=== PATIENT | female | born 1935 | race Caucasian/White ===

== ENCOUNTER 2017-12-23 07:52 | Observation (INO) | payer MEDICARE, OTHER ==
[~2017-12-23] VITALS: Ht 157.5 cm; Wt 86.0 kg
[~2017-12-23 07:52] MED LIST: CALCIUM500 MG OR; FOLIC ACID1 MG PO; LEVOTHYROXIN50 MCG OR; LORTAB 5 OR; MICARDIS40 MG PO; NEXIUM40 M1 OR; RHEUMATREX2.5 M1 PO; SINGULAIR10 MG OR; VERAMYST27.5 MCG; VITAMIN B-12100 MCG PO; VITAMIN D400 UNI1 PO; ZOCOR20 M1 PO; ZOCOR40 MG OR; ZPAK PO
--- NOTE | 2017-12-23 07:52 | NUR ---
PT TO ROOM 12 VIA WC ABLE TO STAND AND TRANSFER SELF WITHOUT ASSIST.
[2017-12-23 08:21] LABS: HEMATOCRIT 38.2 % (37.0-47.0); HEMOGLOBIN 12.4 g/dl (12.0-16.0); IMMATURE GRANULOCYTES 0.4 % (0.0-5.0); MEAN CELL VOLUME 99.5 fL CALC (80.0-100.0); MEAN CORPUSCULAR HGB 32.3 pG CALC (26.0-32.0); MEAN CORPUSCULAR HGB CONC 32.5 g/L CALC (32.0-36.0); NEUT# 8.84 thou/uL (2.00-7.15); RED BLOOD COUNT 3.84 mill/uL (4.20-5.60); RED CELL DISTRI WIDTH 14.2 % (11.5-15.5)
[2017-12-23 08:34] LABS: ANION GAP 12 (6-22 (CALC)); BUN 14 mg/dL (8-23); BUN/CREATININE RATIO 20 (12-20 (CALC)); CARBON DIOXIDE 29 mmol/l (22-30); CHLORIDE 105 mmol/l (95-108); CREATININE 0.7 mg/dL (0.5-1.0); GFR > 60 ML/MIN (>=60 (CALC)); GFR FOR AFR.AMER. > 60 ML/MIN (>=60 (CALC)); POTASSIUM 4.2 mmol/l (3.5-5.1); SODIUM 142 mmol/l (137-146)
--- NOTE | 2017-12-23 08:53 | NUR ---
PT UPDATED ON KNOWN RESULTS, RESTS IN THE STRETCHER WITH DAUGHTER AT BEDSIDE.
[2017-12-23] MEDS ORDERED: METOPROL TAR25 MG PO (09:26)
[2017-12-23] MEDS ORDERED: LOSARTAN POTASS50 MG PO (09:27)
[2017-12-23] MEDS ORDERED: ELIQUIS5 MG PO (09:27)
[2017-12-23] MEDS ORDERED: OMEPRAZOLE10 MG PO (09:28)
[2017-12-23] MEDS ORDERED: LEVOTHYROXIN75 MCG PO (09:28)
[2017-12-23] MEDS ORDERED: D3 20002000 UNIT PO (09:30)
--- NOTE | 2017-12-23 09:34 | NUR ---
PT AWARE OF PENDING ADMISSION, NO CHEST PAIN OR SOB.
[2017-12-23 10:30] VITALS: BP 153/71
--- NOTE | 2017-12-23 10:35 | NUR ---
PT TAKEN TO ROOM 278 WITHOUT INCIDENT, REPORT WAS TO SAMIRA.
--- NOTE | 2017-12-23 10:55 | NUR ---
PT ARRIVED TO FLOOR @1030 VIA STRETCHER ACCOMPANIED BY CLARENCE TURPIN. PT AMBULATES INDEPENDENTLY. STEADY GAIT. DENIES PAIN. REPORTING OF CONCERNS AND CHANGES IN CONDITION ENCOURAGED. PLAN OF CARE DISCUSSED. PT ORIENTED TO ROOM AND EQUIPMENT. CALL LIGHT REVIEWED AND IN REACH. LUNGS CLEAR, NO SOB NOTED. TELE MONITOR IN PLACE. #20 LFA, FREE FROM REDNESS/ SWELLING. IVF INITIATED PER MS ORDERS. WILL CONTINUE TO MONITOR.
--- NOTE | 2017-12-23 11:21 | NUR ---
CALLED DR. ZUÑIGA'S OFFICE, SPOKE TO MARCEL AND ALL INFORMATION REGARDING PATIENT'S CONSULTATION WAS GIVEN.
--- NOTE | 2017-12-23 14:00 | NUR ---
PT SITTING IN CHAIR AT BEDSIDE. DENIES PAIN AT THIS TIME. NO COMPLAINTS AT THIS TIME. CALL LIGHT WITHIN REACH.
[2017-12-23 15:31] VITALS: BP 167/75
--- NOTE | 2017-12-23 16:01 | NUR ---
BP 167/75, DR. SIMS NOTIFIED. ORDER FOR CLONIDINE PRN GIVEN. MED ADMINISTERED.
[2017-12-23 19:22] VITALS: BP 139/64
--- NOTE | 2017-12-23 19:30 | NUR ---
PATIENT RESTING IN BED AT THIS TIME-AWAKE ALERT AND ORIENTEDX3. PATIENT WITH NO COMPLAINTS AT THIS TIME. TELE MONITORING DEVICE IN PLACE. SALINE LOCK TO LEFT FOREARM INTACT-IS HEALTHY AT THIS TIME. STATES LAST BM YESTERDAY. DENIES ANY DIFFICULTY WITH URINATION. LUNGS ARE CLEAR. ABD IS SOFT AND NON-TENDER. BS+. NO PEDAL EDEMA NOTED AND PULSES ARE PALPABLE. SAFETY PRECAUTIONS REINFORCED. CALL LIGHT IN REACH. WILL CONT TO MONITOR.
--- NOTE | 2017-12-23 23:42 | NUR ---
APPEARS SLEEPING AT THIS TIME POSITIONED ON LEFT SIDE. RESP ARE EVEN AND UNLABORED. 2200 TROP NEG. CALL LIGHT IN REACH. WILL CONT TO MONITOR.
[2017-12-23 23:54] VITALS: BP 137/66
[2017-12-24 04:15] LABS: HEMATOCRIT 35.1 % (37.0-47.0); HEMOGLOBIN 11.4 g/dl (12.0-16.0); IMMATURE GRANULOCYTES 0.3 % (0.0-5.0); MEAN CELL VOLUME 98.3 fL CALC (80.0-100.0); MEAN CORPUSCULAR HGB 31.9 pG CALC (26.0-32.0); MEAN CORPUSCULAR HGB CONC 32.5 g/L CALC (32.0-36.0); NEUT# 8.22 thou/uL (2.00-7.15); RED BLOOD COUNT 3.57 mill/uL (4.20-5.60); RED CELL DISTRI WIDTH 14.1 % (11.5-15.5)
--- NOTE | 2017-12-24 04:22 | NUR ---
PATIENT RESTING IN BED APPEARS SLEEPING AT THIS TIME. TROP WAS DRAWN ORDERED. CALL LIGHT IN REACH. WILL CONT TO MONITOR,
[2017-12-24 04:27] LABS: ALBUMIN 3.1 g/dL (3.2-5.0); ALKALINE PHOSPHATASE 64 u/l (38-126); ANION GAP 10 (6-22 (CALC)); BILIRUBIN, TOTAL 0.7 mg/dL (0.0-1.4); BUN 12 mg/dL (8-23); BUN/CREATININE RATIO 20 (12-20 (CALC)); CARBON DIOXIDE 28 mmol/l (22-30); CHLORIDE 105 mmol/l (95-108); CREATININE 0.6 mg/dL (0.5-1.0); GFR > 60 ML/MIN (>=60 (CALC)); GFR FOR AFR.AMER. > 60 ML/MIN (>=60 (CALC)); MAGNESIUM 1.8 mg/dL (1.6-2.3); POTASSIUM 4.4 mmol/l (3.5-5.1); SGOT/AST 18 u/l (9-36); SGPT/ALT 27 u/l (11-66); SODIUM 139 mmol/l (137-146); TOTAL PROTEIN 5.6 g/dL (6.3-8.2)
[2017-12-24 04:46] VITALS: BP 135/64
[2017-12-24 07:55] VITALS: BP 140/47
--- NOTE | 2017-12-24 07:55 | NUR ---
ASSESSMENT IS COMPLETED: PT IS RELAXING IN BED WITH NO DISTRESS NOTED. IV SITE IS FREE FROM REDNESS OR EDEMA. HR IS REG, PULSES ARE STRONG X4, ABD IS SOFT WITH ACTIVE BS, BREATH SOUNDS ARE CLEAR. TELE MONTIOR IN PLACE.
[2017-12-24 11:00] VITALS: BP 158/70
--- NOTE | 2017-12-24 12:00 | NUR ---
PT IS RELAXING IN BED AND WAITING ON DISCHARGE. FAMILY IN THE ROOM.IV SITE IS FREE FROM REDNESS OR EDEMA.
--- NOTE | 2017-12-24 13:15 | NUR ---
PT RECEIVED DISCHARGE INSTRUCTIONS IV SITE DISCONTINUED CATHETER INTAT.
--- NOTE | 2017-12-24 13:20 | NUR ---
Discharge instructions given. Patient verbalizes understanding of same. Discharged in stable condition via Wheelchair to Home with family. All belongings sent with pt.
== END 2017-12-24 13:12 | disposition home or self-care (01) ==
LOC: ED 07:52 → ED-I 08:28 → ED 09:35 → MS2 09:36
PROVIDERS: Family Medicine; ADMIT Internal Medicine Nephrology; ATTEND Internal Medicine Nephrology
DX: R07.89 Other chest pain (principal); I10 Essential (primary) hypertension; M06.9 Rheumatoid arthritis, unspecified; I48.0 Paroxysmal atrial fibrillation; E03.9 Hypothyroidism, unspecified; E78.5 Hyperlipidemia, unspecified; K21.9 Gastro-esophageal reflux disease without esophagitis; E55.9 Vitamin D deficiency, unspecified; G25.81 Restless legs syndrome; Z86.718 Personal history of other venous thrombosis and embolism; Z79.01 Long term (current) use of anticoagulants

== ENCOUNTER 2018-03-07 16:27 | Emergency (ER) | payer MEDICARE, OTHER ==
[~2018-03-07] VITALS: Ht 157.5 cm; Wt 86.4 kg
[~2018-03-07 16:27] MED LIST changes: +D3 20002000 UNIT PO; +ELIQUIS5 MG PO; +LEVOTHYROXIN75 MCG PO; +LOSARTAN POTASS50 MG PO; +METOPROL TAR25 MG PO; +OMEPRAZOLE10 MG PO
[2018-03-07 17:22] LABS: HEMATOCRIT 41.8 % (37.0-47.0); HEMOGLOBIN 12.7 g/dl (12.0-16.0); IMMATURE GRANULOCYTES 0.3 % (0.0-5.0); MEAN CELL VOLUME 104.2 fL CALC (80.0-100.0); MEAN CORPUSCULAR HGB 31.7 pG CALC (26.0-32.0); MEAN CORPUSCULAR HGB CONC 30.4 g/L CALC (32.0-36.0); NEUT# 4.48 thou/uL (2.00-7.15); RED BLOOD COUNT 4.01 mill/uL (4.20-5.60); RED CELL DISTRI WIDTH 14.6 % (11.5-15.5)
[2018-03-07 17:31] LABS: ANION GAP 12 (6-22 (CALC)); BUN 12 mg/dL (8-23); BUN/CREATININE RATIO 19 (12-20 (CALC)); CARBON DIOXIDE 25 mmol/l (22-30); CHLORIDE 110 mmol/l (95-108); CREATININE 0.7 mg/dL (0.5-1.0); GFR > 60 ML/MIN (>=60 (CALC)); GFR FOR AFR.AMER. > 60 ML/MIN (>=60 (CALC)); POTASSIUM 4.8 mmol/l (3.5-5.1); SODIUM 141 mmol/l (137-146)
[2018-03-07 18:38] VITALS: BP 163/60
[2018-03-08] MEDS ORDERED: KEPPRA500 M2 PO (13:17)
== END 2018-03-07 19:08 | disposition home or self-care (01) ==
LOC: ED 16:27
PROVIDERS: Family Medicine
DX: R56.9 Unspecified convulsions (principal); I10 Essential (primary) hypertension; I48.0 Paroxysmal atrial fibrillation; E78.5 Hyperlipidemia, unspecified; K21.9 Gastro-esophageal reflux disease without esophagitis; M19.90 Unspecified osteoarthritis, unspecified site; Z86.73 Personal history of transient ischemic attack (TIA), and cerebral infarction without residual deficits

== ENCOUNTER 2018-03-08 10:25 | Emergency (ER) | payer MEDICARE, OTHER ==
[~2018-03-08] VITALS: Ht 157.5 cm; Wt 86.0 kg
[2018-03-08 12:46] LABS: HEMATOCRIT 38.8 % (37.0-47.0); HEMOGLOBIN 12.5 g/dl (12.0-16.0); IMMATURE GRANULOCYTES 0.3 % (0.0-5.0); MEAN CORPUSCULAR HGB 31.6 pG CALC (26.0-32.0); MEAN CORPUSCULAR HGB CONC 32.2 g/L CALC (32.0-36.0); NEUT# 4.18 thou/uL (2.00-7.15); RED BLOOD COUNT 3.96 mill/uL (4.20-5.60); RED CELL DISTRI WIDTH 14.6 % (11.5-15.5)
[2018-03-08 13:08] LABS: ALBUMIN 3.4 g/dL (3.2-5.0); ALKALINE PHOSPHATASE 58 u/l (38-126); ANION GAP 11 (6-22 (CALC)); BILIRUBIN, TOTAL 0.4 mg/dL (0.0-1.4); BUN 12 mg/dL (8-23); BUN/CREATININE RATIO 19 (12-20 (CALC)); CARBON DIOXIDE 27 mmol/l (22-30); CHLORIDE 107 mmol/l (95-108); CREATININE 0.6 mg/dL (0.5-1.0); GFR > 60 ML/MIN (>=60 (CALC)); GFR FOR AFR.AMER. > 60 ML/MIN (>=60 (CALC)); POTASSIUM 4.2 mmol/l (3.5-5.1); SGOT/AST 39 u/l (9-36); SODIUM 141 mmol/l (137-146)
[2018-03-08] MEDS ORDERED: KEPPRA500 M2 PO (13:17)
[2018-03-08 13:31] VITALS: BP 141/65
== END 2018-03-08 13:40 | disposition home or self-care (01) ==
LOC: ED 10:25
PROVIDERS: Emergency Medicine
DX: G40.909 Epilepsy, unspecified, not intractable, without status epilepticus (principal); R42 Dizziness and giddiness; R94.31 Abnormal electrocardiogram [ECG] [EKG]; I10 Essential (primary) hypertension

== ENCOUNTER → 2018-06-20 | Outpatient (REF) | payer MEDICARE, OTHER ==
[~2018-06-20] MED LIST changes: +KEPPRA500 M2 PO
[2018-06-20 10:46] LABS: HEMOGLOBIN 12.2 g/dl (12.0-16.0); IMMATURE GRANULOCYTES 0.4 % (0.0-5.0); MEAN CELL VOLUME 97.4 fL CALC (80.0-100.0); MEAN CORPUSCULAR HGB 31.3 pG CALC (26.0-32.0); MEAN CORPUSCULAR HGB CONC 32.1 g/L CALC (32.0-36.0); NEUT# 4.48 thou/uL (2.00-7.15); RED BLOOD COUNT 3.9 mill/uL (4.20-5.60); RED CELL DISTRI WIDTH 14.9 % (11.5-15.5)
[2018-06-20 10:56] LABS: ALBUMIN 3.9 g/dL (3.2-5.0); BILIRUBIN, TOTAL 0.4 mg/dL (0.0-1.4); C-REACTIVE PROTEIN 1.7 mg/dL (0-0.9); CREATININE 0.7 mg/dL (0.5-1.0); TOTAL PROTEIN 6.5 g/dL (6.3-8.2)
== END | disposition home or self-care (01) ==
LOC: LAB 09:55
PROVIDERS: ATTEND Internal Medicine Rheumatology
DX: M06.09 Rheumatoid arthritis without rheumatoid factor, multiple sites (principal); Z79.899 Other long term (current) drug therapy

== ENCOUNTER 2018-10-13 17:38 | Observation (INO) | payer MEDICARE, OTHER ==
[~2018-10-13] VITALS: Ht 152.4 cm; Wt 86.2 kg
--- NOTE | 2018-10-13 17:45 | NUR ---
EMS TO ER ROOM 10, TO BED
--- NOTE | 2018-10-13 17:50 | NUR ---
PT ARRIVES VIA EMS S/P SEIZURE AT HOME. PT WEEPY BUT ALERT AND ORIENTED X4.
[2018-10-13] MEDS ORDERED: ELIQUIS2.5 MG PO (17:56)
[2018-10-13] MEDS ORDERED: KEPPRA XR750 MG PO (17:58)
[2018-10-13 18:00] LABS: HEMATOCRIT 40.2 % (37.0-47.0); HEMOGLOBIN 13.1 g/dl (12.0-16.0); IMMATURE GRANULOCYTES 0.4 % (0.0-5.0); MEAN CELL VOLUME 95.7 fL CALC (80.0-100.0); MEAN CORPUSCULAR HGB 31.2 pG CALC (26.0-32.0); MEAN CORPUSCULAR HGB CONC 32.6 g/L CALC (32.0-36.0); NEUT# 7.31 thou/uL (2.00-7.15); RED BLOOD COUNT 4.2 mill/uL (4.20-5.60); RED CELL DISTRI WIDTH 14.4 % (11.5-15.5)
[2018-10-13 18:17] LABS: ALBUMIN 3.8 g/dL (3.2-5.0); ALKALINE PHOSPHATASE 75 u/l (38-126); BILIRUBIN, TOTAL 0.5 mg/dL (0.0-1.4); BUN 14 mg/dL (8-23); BUN/CREATININE RATIO 19 (12-20 (CALC)); CARBON DIOXIDE 26 mmol/l (22-30); CHLORIDE 106 mmol/l (95-108); CREATININE 0.7 mg/dL (0.5-1.0); GFR > 60 ML/MIN (>=60 (CALC)); GFR FOR AFR.AMER. > 60 ML/MIN (>=60 (CALC)); SODIUM 141 mmol/l (137-146); TOTAL PROTEIN 6.4 g/dL (6.3-8.2)
[2018-10-13 18:18] LABS: ANION GAP 13 (6-22 (CALC)); POTASSIUM 3.6 mmol/l (3.5-5.1); SGOT/AST 43 u/l (9-36)
--- NOTE | 2018-10-13 18:45 | NUR ---
PT RESTING IN NO DISTRESS, WEEPY WITH FAMILY. DENIES COMPLAINTS. VSS. ASSISTED UP IN BED,FAMILY UPDATED ON WAIT TIME.
--- NOTE | 2018-10-13 18:50 | NUR ---
IN ROOM INTRODUCED SELF TO PT. NO C/O PAIN OR DISCIMFORT OFFERD, V/V STABLE, NO SEIZURE ACTIVITY NOTED. PT. FAMILY AT SIDE.
--- NOTE | 2018-10-13 19:30 | NUR ---
Admission Note Report Given to: SABI LIMA Transported by: Wheelchair X Stretcher Transported with: X Nurse Transporter X Patent IV O2 X Money Order Clerk
--- NOTE | 2018-10-13 20:00 | NUR ---
PT. TO [facility] FLOOR VIA STRETCHER, NO C/O AT THIS TIME.
[2018-10-13 20:15] VITALS: BP 160/62
--- NOTE | 2018-10-13 20:15 | NUR ---
PT ARRIVED TO THE FLOOR VIA STRETCHER ACCOMPANIED BY ED NURSE. PT AMBULATED TO BED FROM STRETCHER W/ASSISTANCE X2. PT WAS STABLE ON HER FEET, NO S/O DISTRESS/P/N/V AT THIS TIME. DAUGHTER AND ACCOMPANIED PT TO ROOM. AIDE IS IN W/PT ORIENTING TO LIGHTS CALL SYSTEM, BED,TV.
[2018-10-13 20:45] LABS: URINE BILIRUBIN - DIPSTICK NEGATIVE (NEGATIVE); URINE BLOOD DIPSTICK NEGATIVE (NEGATIVE); URINE COLOR YELLOW; URINE GLUCOSE - DIPSTICK NEGATIVE (NEGATIVE); URINE KETONE NEGATIVE (NEGATIVE); URINE LEUK ESTERASE MODERATE (NEGATIVE); URINE NITRITE - DIPSTICK NEGATIVE (Negative); URINE PH 6.5 (4.5-8.0); URINE PROTEIN - DIPSTICK NEGATIVE (NEG-TRACE); URINE UROBILINOGEN - DIPSTICK 0.2 E.U./dL (0.2)
--- NOTE | 2018-10-13 20:45 | NUR ---
PT ASSESSED AND ADMISSION COMPLETED AT THIS TIME. DAUGHTER WAS HERE TO ASSIST W/QUESTIONS. PT ABLE TO ANSWER MOST QUESTIONS AND DAUGHTER WOULD ASSIST AT TIMES. PT ASSISTED TO AND FROM RESTROOM, BACK TO BED/STEADY ON FEET. PT HAS BEEN INSTRUCTED TO CALL FOR ASSISTANCE WHEN AMBULATING/VOICED UNDERSTANDING. PT MOVES QUICKLY AND WAS REMINDED TO SLOW DOWN SINCE SHE IS NOT FEELING WELL RIGHT NOW. NO C/O PAIN/N/V/[place] AT THIS TIME. LUNG SOUNDS ARE CLEAR, ABD SOFT NON-TENDER W/ACTIVE BOWEL SOUNDS/LAST STOOL REPORTED TO BE YESTERDAY AND NORMAL FOR PT. 200CC OF CLEAR YELLOW URINE OUTPUT EMPTIED AT THIS TIME/PT DENIES ANY BURNING OR DIFFICULTY URINATING. SKIN AND NEURO'S ARE INTACT, TRACE EDEMA NOTED TO LEFT KNEE/PT REPORTS HAVING RA AND RECEIVING PERIODIC SHOTS TO L.KNEE AND FLUID REMOVED FROM SAID KNEE. DAUGHTER AND ARE LEAVING AT THIS TIME. WILL CONTINUE TO MONITOR PT AND SET BED ALARM FOR SAFETY PRECAUTIONS. CALL LIGHT IS AT SIDE.
[2018-10-13 20:52] LABS: URINE RBC 0-2 RBC/hpf (0-5); URINE SQUAMOUS EPITHELIAL CELL FEW EPI/hpf (0-FEW)
--- NOTE | 2018-10-13 21:55 | NUR ---
PT MEDICATED ORDERS PROVIDE, IV FLUIDS ADMINISTERED AT THIS TIME, RUNNING TO AN EMS IV SITE TO LAC THAT APPEARS HEALTHY AT THIS TIME. PT REORIENTED TO CALL SYSTEM/LIGHTS/AND BED. PT REMINDED TO CALL IF SHE NEEDS TO AMBULATE/VOICED UNDERSTANDING. BED ALARM ON FOR SAFETY. BED RAILS HAVE BEEN WRAPPED FOR SEIZURE PRECAUTIONS. ALLERGY BAND HAS BEEN PLACED/NOT ON UPON ARRIVING TO THE FLOOR. DENIES ANY OTHER NEEDS AT THIS TIME.
--- NOTE | 2018-10-13 23:05 | NUR ---
PT CALLED FOR ASSISTANCE TO RESTROOM, PT AMBULATED STEADILY TO AND FROM RESTROOM, BACK TO BED ASSISTED REPOSITIONING. PT DENIES ANY OTHER NEEDS AT THIS TIME. CALL LIGHT AT SIDE AND PT REORIENTED TO ITS USE. VOICES UNDERSTANDING. BED ALARM IS ON.
--- NOTE | 2018-10-14 02:50 | NUR ---
PT CALLED FOR ASSISTANCE AMBULATING TO RESTROOM AND ASSISTED BACK TO BED. PT WAS STEADY ON FEET, QUICK MOVING, LOCX4. NO DISTRESS NOTED, NO SHAKING OR FIDGETING SHE WAS WHEN SHE FIRST ARRIVED TO THE FLOOR. CALL LIGHT IS AT SIDE. BED POSITIONED FOR COMFORT. PT DENIES ANY OTHER NEEDS AT THIS TIME.
[2018-10-14 04:02] VITALS: BP 141/67
--- NOTE | 2018-10-14 05:39 | NUR ---
PT MEDICATED ORDERS PROVIDE W/AM MEDICATION. PT DENIES ANY OTHER NEEDS AT THIS TIME AND WAS SLEEPING SOUNDLY WHEN I ENTERED THE ROOM. CALL LIGHT IS AT SIDE.
[2018-10-14 06:10] VITALS: BP 140/76
--- NOTE | 2018-10-14 06:10 | NUR ---
PT CALLED TO REPORT THAT SHE FEELS LIKE A SEIZURE IS COMING ON. PT ASSESSED TALKING, ANSWERING APPROPRIATELY, EYES CLOSED, PT WAS NOT SHAKING WHEN I ENTERED ROOM, BUT WHEN I SPOKE TO HER SHE RAISED HER ARMS SLIGHTLY OFF THE BED AND ARMS BEGAN TO SHAKE. I TALKED W/PT AND ASKED HER TO LOWER HER ARMS AND TRY AND RELAX/SHE DID/SHAKING STOPPED. V/S WERE ASSESSED, BP 140/76, HR 72, 97.5 TEMP, 96% 02SAT ON RA. I ASKED PT TO OPEN HER EYES SO I COULD CHECK HER PUPILS AND THEY HAD MATTER HOLDING THEM CLOSED. I ASSISTED PT W/WARM CLOTH TO CLEAN MATTER FROM EYES/ SHE REPORTED THEY HAVE BEEN DOING THAT FOR A LONG TIME. PT REPORTS FEELING LIKE SHE WANTS TO SHAKE, BUT SHE IS NO LONGER APPEARING SHAKY. I ASKED PT IF THERE WAS ANYTHING ELSE I COULD DO OR PROVIDE TO MAKE HER FEEL MORE COMFORTABLE/DENIED. WE DISCUSSED THE WAY SHE WAS FEELING AND SHE STATED THAT SHE HAS BEEN TO NEUROLOGISTS AND THEY CANNOT FIND WHAT IS MAKING HER FEEL THAT WAY. NO OTHER S/O DISTRESS AT THIS TIME. I INSTRUCTED PT TO CALL IF SHE STARTS FEELING SHAKY AGAIN OR ANYTHING WORSENS OR CHANGES/CALL LIGHT IS IN HER HAND. LIGHTS TURNED DOWN REQUESTED.
--- NOTE | 2018-10-14 06:29 | NUR ---
PT APPEARS RESTFUL AT THIS TIME, NO SHAKING VISIBLE AT THIS TIME. CALL LIGHT AT SIDE AND LIGHTS ARE OFF.
--- NOTE | 2018-10-14 07:00 | NUR ---
PT REPORT RECIEVED FROM CLARENCE CELESTIN. PT SLEEPING. NO S/S OF DISTRESS. CALL LIGHT IN REACH. BED ALARM ON. WILL CONTINUE TO MONITOR.
[2018-10-14 07:41] VITALS: BP 132/79
--- NOTE | 2018-10-14 07:41 | NUR ---
PT A/O X3. SPEECH IS CLEAR. RESP EVEN AND UNLABORED. LUNG SOUNDS CLEAR. BOWEL SOUNDS ACTIVE X4. STRONG RADIAL, WEAK PEDAL PULSES. #18 [facility] EMS SITE NS @100. SITE APPEARS HEALTHY. TRACE OF EDEMA TO LT KNEE. SKIN INTACT. PT DENIES ANY PAIN OR NEEDS. POC DISCUSSED. SAFETY PRECAUTIONS IN PLACE. BED ALARM ON. SEIZURE PRECAUTIONS. CALL LIGHT IN REACH. WILL CONTINUE TO MONITOR.
--- NOTE | 2018-10-14 11:28 | NUR ---
PT TALKING W/ FAMILY. NO C/O PAIN OR NEEDS. BED ALARM ON. CALL LIGHT IN REACH. WILL CONTINUE TO MONITOR.
[2018-10-14 15:00] VITALS: BP 163/77
--- NOTE | 2018-10-14 15:00 | NUR ---
PT FAMILY MEMBER CALLED STATING PT IS HAVING SEIZURE LIKE ACTIVITIES. UPON ENTERING ROOM PT EYES CLOSED, NONVERBAL, INTERMITTENT SHAKINESS. RAPID RESPONSE CALLED. VS DONE. BP 163/77, PULSE 77. SEVERAL MOMENTS LATER PT VERBAL, EYES OPENED. PT ABLE TO STATE WHAT SHE WAS DOING PRIOR TO SEIZURE. PT ADJUSTED IN BED FOR COMFORT. PT DENIES ANY FURTHER NEEDS. FAMILY AT BEDSIDE. CALL LIGHT IN REACH. MADE AWARE; NO NEW ORDERS. WILL CONTINUE TO MONITOR.
--- NOTE | 2018-10-14 16:06 | NUR ---
PT RESTING IN BED. NO C/O PAIN OR NEEDS. BED ALARM ON. CALL LIGHT IN REACH. WILL CONTINUE TO MONITOR.
[2018-10-14 18:00] VITALS: BP 158/75
[2018-10-14 20:20] VITALS: BP 154/57
--- NOTE | 2018-10-14 21:12 | NUR ---
PT MEDICATED ORDERS PROVIDE AND PT ASSESSED. LUNG SOUNDS ARE CLEAR, NEURO'S INTACT. NO S/O DISTRESS AT THIS TIME. PT WAS SLEEPING SOUNDLY WHEN I ENTERED THE ROOM, AWOKE TO MY VOICE AFTER SEVERAL ATTEMPTS. DENIES ANY OTHER NEEDS AT THIS TIME. CALL LIGHT AT SIDE.
--- NOTE | 2018-10-15 00:18 | NUR ---
PT BED ALARM SOUNDED. PT WAS SITTING ON SIDE OF THE BED, STATED SHE NEEDS TO USE RESTROOM. PT ASSISTED TO RESTROOM AND BACK TO BED. TOLERATED WELL. IMMEDIATELY IS ATTEMPTING TO RETURN TO SLEEP, DENIES ANY NEEDS. FEET WERE A LITTLE SHAKY SHE WAS GETTING UP, BUT NO S/O SEIZURE, PT STILL COMMUNICATING APPROPRIATELY AND STEADY ON FEET W/SLIGHT LIMP TO L.KNEE.
[2018-10-15 04:07] VITALS: BP 170/62
[2018-10-15 05:03] LABS: HEMOGLOBIN 11.7 g/dl (12.0-16.0); IMMATURE GRANULOCYTES 0.3 % (0.0-5.0); MEAN CELL VOLUME 97.3 fL CALC (80.0-100.0); MEAN CORPUSCULAR HGB 31.6 pG CALC (26.0-32.0); MEAN CORPUSCULAR HGB CONC 32.5 g/L CALC (32.0-36.0); NEUT# 4.93 thou/uL (2.00-7.15); RED BLOOD COUNT 3.7 mill/uL (4.20-5.60); RED CELL DISTRI WIDTH 14.3 % (11.5-15.5)
[2018-10-15 05:16] LABS: ALBUMIN 3.1 g/dL (3.2-5.0); ALKALINE PHOSPHATASE 64 u/l (38-126); AMYLASE 71 u/l (30-110); ANION GAP 8 (6-22 (CALC)); BILIRUBIN, TOTAL 0.4 mg/dL (0.0-1.4); BUN 15 mg/dL (8-23); BUN/CREATININE RATIO 25 (12-20 (CALC)); CARBON DIOXIDE 27 mmol/l (22-30); CHLORIDE 109 mmol/l (95-108); CREATININE 0.6 mg/dL (0.5-1.0); GFR > 60 ML/MIN (>=60 (CALC)); GFR FOR AFR.AMER. > 60 ML/MIN (>=60 (CALC)); LIPASE 101 u/l (23-300); POTASSIUM 4.2 mmol/l (3.5-5.1); SGOT/AST 31 u/l (9-36); SODIUM 140 mmol/l (137-146); TOTAL PROTEIN 5.4 g/dL (6.3-8.2)
--- NOTE | 2018-10-15 05:28 | NUR ---
PT MEDICATED FOR ELEVATED BP ORDERS PROVIDE. WILL FOLLOW-UP W/REASSESSMENT.
--- NOTE | 2018-10-15 07:00 | NUR ---
PT REPORT RECIEVED FROM CLARENCE CELESTIN. PT RESTING. NO S/S OF DISTRESS. CALL LIGHT IN REACH. WILL CONTINUE TO MONITOR.
[2018-10-15 07:36] VITALS: BP 150/52
--- NOTE | 2018-10-15 07:36 | NUR ---
PT A/O X3. SPEECH IS CLEAR. RESP EVEN AND UNLABORED. LUNG SOUNDS CLEAR. BOWEL SOUNDS ACTIVE X4. STRONG RADIAL, WEAK PEDAL PULSES. #22 LAC SL. FLUSHED AND PATENT. SITE APPEARS HEALTHY. TRACE OF EDEMA TO LT KNEE. SKIN INTACT. PT DENIES ANY PAIN OR NEEDS. POC DISCUSSED. SAFETY PRECAUTIONS IN PLACE. BED ALARM ON. CALL LIGHT IN REACH. WILL CONTINUE TO MONITOR.
[2018-10-15 07:39] VITALS: BP 150/52
--- NOTE | 2018-10-15 11:48 | NUR ---
PT SITTING IN CHAIR EATING. FAMILY AT BEDSIDE. NO C/O PAIN OR NEEDS. CALL LIGHT IN REACH. WILL CONTINUE TO MONITOR.
[2018-10-15] MEDS ORDERED: KEFLEX500 M1 PO (13:19)
--- NOTE | 2018-10-15 14:05 | NUR ---
D/C INSTRUCTIONS DISCUSSED W/ PT. PT STATES UNDERSTANDING. IV REMOVED. CATHETER INTACT. PT DRESSED, WAITING FOR WC. FAMILY AT BEDSIDE.
--- NOTE | 2018-10-15 14:06 | NUR ---
Discharge instructions given. Patient verbalizes understanding of same. Discharged in stable condition via Wheelchair to Home with family. All belongings sent with pt.
== END 2018-10-15 14:10 | disposition home health service (06) ==
LOC: ED 17:38 → ED-I 18:39 → ED 18:52 → MS2 18:53
PROVIDERS: Emergency Medicine; Internal Medicine Nephrology; ADMIT Internal Medicine; ATTEND Internal Medicine
DX: G40.409 Other generalized epilepsy and epileptic syndromes, not intractable, without status epilepticus (principal); N39.0 Urinary tract infection, site not specified; I10 Essential (primary) hypertension; I25.10 Atherosclerotic heart disease of native coronary artery without angina pectoris; E03.9 Hypothyroidism, unspecified; I48.0 Paroxysmal atrial fibrillation; E78.5 Hyperlipidemia, unspecified; K21.9 Gastro-esophageal reflux disease without esophagitis; E55.9 Vitamin D deficiency, unspecified; M06.9 Rheumatoid arthritis, unspecified; Z79.899 Other long term (current) drug therapy; Z86.73 Personal history of transient ischemic attack (TIA), and cerebral infarction without residual deficits; Z79.01 Long term (current) use of anticoagulants

== ENCOUNTER 2019-07-21 | Emergency (ER) | payer MEDICARE, OTHER ==
[~2019-07-21] MED LIST changes: +ELIQUIS2.5 MG PO; +KEFLEX500 M1 PO; +KEPPRA XR750 MG PO; -VITAMIN B-12100 MCG PO; +VITAMIN B-12500 MCG PO
[2019-07-21 04:11] LABS: HEMATOCRIT 39.1 % (37.0-47.0); HEMOGLOBIN 12.6 g/dl (12.0-16.0); IMMATURE GRANULOCYTES 0.5 % (0.0-5.0); MEAN CELL VOLUME 95.8 fL CALC (80.0-100.0); MEAN CORPUSCULAR HGB 30.9 pG CALC (26.0-32.0); MEAN CORPUSCULAR HGB CONC 32.2 g/dL CAL (32.0-36.0); NEUT# 12.95 thou/uL (2.00-7.15); RED BLOOD COUNT 4.08 mill/uL (4.20-5.60); RED CELL DISTRI WIDTH 14.4 % (11.5-15.5)
[2019-07-21] MEDS ORDERED: DIUREX 50-162.51 TAB (04:17)
[2019-07-21 04:25] LABS: ALBUMIN 4.2 g/dL (3.2-5.0); ALKALINE PHOSPHATASE 87 u/l (38-126); AMYLASE 55 u/l (30-110); ANION GAP 14 (6-22 (CALC)); BUN 12 mg/dL (8-23); BUN/CREATININE RATIO 18 (12-20 (CALC)); CARBON DIOXIDE 26 mmol/l (22-30); CHLORIDE 105 mmol/l (95-108); CREATININE 0.7 mg/dL (0.5-1.0); GFR > 60 ML/MIN (>=60 (CALC)); GFR FOR AFR.AMER. > 60 ML/MIN (>=60 (CALC)); LIPASE 47 u/l (23-300); POTASSIUM 3.9 mmol/l (3.5-5.1); SGOT/AST 31 u/l (9-36); SODIUM 141 mmol/l (137-146); TOTAL PROTEIN 7.5 g/dL (6.3-8.2)
[2019-07-21 04:26] LABS: PROTHROMBIN TIME 10.3 SECONDS (9.0-12.5)
[2019-07-21 04:37] LABS: BILIRUBIN, TOTAL 0.3 mg/dL (0.0-1.4)
[2019-07-21 04:59] LABS: MYOGLOBIN 738 ng/mL (0 - 62)
[2019-07-21 05:35] LABS: URINE BILIRUBIN - DIPSTICK NEGATIVE (NEGATIVE); URINE BLOOD DIPSTICK TRACE-INTACT (NEGATIVE); URINE COLOR YELLOW; URINE GLUCOSE - DIPSTICK NEGATIVE (NEGATIVE); URINE KETONE NEGATIVE (NEGATIVE); URINE LEUK ESTERASE NEGATIVE (NEGATIVE); URINE NITRITE - DIPSTICK NEGATIVE (Negative); URINE PH 6.5 (4.5-8.0); URINE PROTEIN - DIPSTICK TRACE mg/dL (NEG-TRACE); URINE SPECIFIC GRAVITY 1.025; URINE UROBILINOGEN - DIPSTICK 0.2 E.U./dL (0.2)
== END 2019-07-21 09:40 | disposition short-term general hospital (02) ==
PROVIDERS: Emergency Medicine
DX: I21.4 Non-ST elevation (NSTEMI) myocardial infarction (principal); I48.0 Paroxysmal atrial fibrillation; I10 Essential (primary) hypertension; Z86.73 Personal history of transient ischemic attack (TIA), and cerebral infarction without residual deficits; Z79.01 Long term (current) use of anticoagulants

== ENCOUNTER 2020-08-25 06:53 | Emergency (ER) | payer MEDICARE, OTHER ==
[~2020-08-25] VITALS: Ht 152.4 cm; Wt 86.3 kg
[~2020-08-25 06:53] MED LIST changes: +DIUREX 50-162.51 TAB
[2020-08-25 07:36] LABS: HEMATOCRIT 41.1 % (37.0-47.0); HEMOGLOBIN 13.6 g/dl (12.0-16.0); IMMATURE GRANULOCYTES 0.4 % (0.0-5.0); MEAN CORPUSCULAR HGB 30.8 pG CALC (26.0-32.0); MEAN CORPUSCULAR HGB CONC 33.1 g/dL CAL (32.0-36.0); NEUT# 11.04 thou/uL (2.00-7.15); RED BLOOD COUNT 4.42 mill/uL (4.20-5.60); RED CELL DISTRI WIDTH 12.8 % (11.5-15.5)
[2020-08-25] MEDS ORDERED: CARVEDILOL6.25 MG PO (08:02)
[2020-08-25 08:06] LABS: ACT PARTIAL THROMBO TIME 19.2 SECONDS (20.0-32.5); INTERNATIONAL NORMALIZED RATIO 1.1 RATIO (0.7-1.3); PROTHROMBIN TIME 10.9 SECONDS (9.0-12.5)
[2020-08-25 08:12] LABS: ALKALINE PHOSPHATASE 83 u/l (38-126); ANION GAP 13 (6-22 (CALC)); BILIRUBIN, TOTAL 0.8 mg/dL (0.0-1.4); BUN 12 mg/dL (8-23); BUN/CREATININE RATIO 20 (12-20 (CALC)); CARBON DIOXIDE 27 mmol/l (22-30); CHLORIDE 101 mmol/l (95-108); CREATININE 0.6 mg/dL (0.5-1.0); GFR > 60 ML/MIN (>=60 (CALC)); GFR FOR AFR.AMER. > 60 ML/MIN (>=60 (CALC)); LIPASE 41 u/l (23-300); MAGNESIUM 1.8 mg/dL (1.6-2.3); SGOT/AST 34 u/l (9-36); SODIUM 137 mmol/l (137-146); TOTAL PROTEIN 7.8 g/dL (6.3-8.2)
[2020-08-25 08:14] LABS: POTASSIUM 3.6 mmol/l (3.5-5.1)
[2020-08-25 09:31] VITALS: BP 169/70
== END 2020-08-25 09:29 | disposition short-term general hospital (02) ==
LOC: ED 06:53
DX: R56.9 Unspecified convulsions (principal); R79.89 Other specified abnormal findings of blood chemistry; I10 Essential (primary) hypertension; I48.0 Paroxysmal atrial fibrillation; E78.5 Hyperlipidemia, unspecified; K21.9 Gastro-esophageal reflux disease without esophagitis; I25.2 Old myocardial infarction; Z86.73 Personal history of transient ischemic attack (TIA), and cerebral infarction without residual deficits; Z20.822 Contact with and (suspected) exposure to COVID-19

== ENCOUNTER 2020-11-01 07:29 | Emergency (ER) | payer MEDICARE, OTHER ==
[~2020-11-01] VITALS: Ht 152.4 cm; Wt 86.3 kg
[~2020-11-01 07:29] MED LIST changes: +CARVEDILOL6.25 MG PO
[2020-11-01 07:43] LABS: HEMATOCRIT 42.4 % (37.0-47.0); HEMOGLOBIN 13.4 g/dl (12.0-16.0); IMMATURE GRANULOCYTES 0.1 % (0.0-5.0); MEAN CELL VOLUME 98.4 fL CALC (80.0-100.0); MEAN CORPUSCULAR HGB 31.1 pG CALC (26.0-32.0); MEAN CORPUSCULAR HGB CONC 31.6 g/dL CAL (32.0-36.0); NEUT# 4.39 thou/uL (2.00-7.15); RED BLOOD COUNT 4.31 mill/uL (4.20-5.60)
[2020-11-01 08:00] LABS: ALKALINE PHOSPHATASE 104 u/l (38-126); ANION GAP 14 (6-22 (CALC)); BILIRUBIN, TOTAL 0.5 mg/dL (0.0-1.4); BUN 11 mg/dL (8-23); BUN/CREATININE RATIO 15 (12-20 (CALC)); CARBON DIOXIDE 25 mmol/l (22-30); CHLORIDE 103 mmol/l (95-108); CREATININE 0.7 mg/dL (0.5-1.0); GFR > 60 ML/MIN (>=60 (CALC)); GFR FOR AFR.AMER. > 60 ML/MIN (>=60 (CALC)); LIPASE 72 u/l (23-300); SGOT/AST 34 u/l (9-36); SODIUM 138 mmol/l (137-146); TOTAL PROTEIN 7.7 g/dL (6.3-8.2)
[2020-11-01 08:02] LABS: POTASSIUM 4.4 mmol/l (3.5-5.1)
[2020-11-01 08:07] LABS: ACT PARTIAL THROMBO TIME 23.5 SECONDS (20.0-32.5); INTERNATIONAL NORMALIZED RATIO 1.1 RATIO (0.7-1.3); PROTHROMBIN TIME 11.2 SECONDS (9.0-12.5)
[2020-11-01 09:58] VITALS: BP 175/73
== END 2020-11-01 10:05 | disposition short-term general hospital (02) ==
LOC: ED 07:29
DX: S02.31XA Fracture of orbital floor, right side, initial encounter for closed fracture (principal); G58.8 Other specified mononeuropathies; I10 Essential (primary) hypertension; I48.0 Paroxysmal atrial fibrillation; E78.5 Hyperlipidemia, unspecified; K21.9 Gastro-esophageal reflux disease without esophagitis; W01.0XXA Fall on same level from slipping, tripping and stumbling without subsequent striking against object, initial encounter; Y92.232 Corridor of hospital as the place of occurrence of the external cause; Z86.73 Personal history of transient ischemic attack (TIA), and cerebral infarction without residual deficits; Z79.01 Long term (current) use of anticoagulants

== ENCOUNTER 2021-10-31 16:20 | Observation (INO) | payer MEDICARE ==
[~2021-10-31] VITALS: Ht 152.4 cm; Wt 86.0 kg
[2021-10-31] VITALS (9 sets, daily range): BP systolic 95–184; BP diastolic 59–97
[~2021-10-31 16:20] MED LIST changes: -ELIQUIS2.5 MG PO; -OMEPRAZOLE10 MG PO; +OMEPRAZOLE20 MG PO
[2021-10-31 17:38] LABS: HEMATOCRIT 44.1 % (37.0-47.0); HEMOGLOBIN 13.9 g/dl (12.0-16.0); IMMATURE GRANULOCYTES 0.3 % (0.0-5.0); MEAN CELL VOLUME 96.1 fL CALC (80.0-100.0); MEAN CORPUSCULAR HGB 30.3 pG CALC (26.0-32.0); MEAN CORPUSCULAR HGB CONC 31.5 g/dL CAL (32.0-36.0); NEUT# 7.17 thou/uL (2.00-7.15); RED BLOOD COUNT 4.59 mill/uL (4.20-5.60); RED CELL DISTRI WIDTH 12.9 % (11.5-15.5)
[2021-10-31 17:40] LABS: URINE BILIRUBIN - DIPSTICK NEGATIVE (NEGATIVE); URINE BLOOD DIPSTICK NEGATIVE (NEGATIVE); URINE COLOR YELLOW; URINE GLUCOSE - DIPSTICK NEGATIVE (NEGATIVE); URINE KETONE NEGATIVE (NEGATIVE); URINE LEUK ESTERASE NEGATIVE (NEGATIVE); URINE PROTEIN - DIPSTICK NEGATIVE (NEG-TRACE); URINE UROBILINOGEN - DIPSTICK 0.2 E.U./dL (0.2)
[2021-10-31 17:44] LABS: URINE NITRITE - DIPSTICK NEGATIVE (Negative)
[2021-10-31 17:54] LABS: INTERNATIONAL NORMALIZED RATIO 1.1 RATIO (0.7-1.3); PROTHROMBIN TIME 11.3 SECONDS (9.0-12.5)
[2021-10-31 17:55] LABS: ALBUMIN 3.9 g/dL (3.2-5.0); ALKALINE PHOSPHATASE 109 u/l (38-126); BUN 10 mg/dL (8-23); BUN/CREATININE RATIO 13 (12-20 (CALC)); CARBON DIOXIDE 26 mmol/l (22-30); CHLORIDE 101 mmol/l (95-108); CREATININE 0.7 mg/dL (0.5-1.0); GFR FOR AFR.AMER. > 60 ML/MIN (>=60 (CALC)); GFR OTHER RACES > 60 ML/MIN (>=60 (CALC)); SGOT/AST 28 u/l (9-36); SODIUM 136 mmol/l (137-146); TOTAL PROTEIN 7.2 g/dL (6.3-8.2)
[2021-10-31 17:59] LABS: ANION GAP 13 (6-22 (CALC)); BILIRUBIN, TOTAL 0.6 mg/dL (0.0-1.4); POTASSIUM 3.5 mmol/l (3.5-5.1)
[2021-10-31] MEDS ORDERED: COQ10200 MG PO (18:55)
[2021-10-31] MEDS ORDERED: CRANBERR3 PO (19:02)
[2021-10-31] MEDS ORDERED: NORVASC5 M1 PO (19:03)
[2021-10-31] MEDS ORDERED: LIPITOR10 M1 PO (19:04)
[2021-11-01] VITALS (7 sets, daily range): BP systolic 128–187; BP diastolic 55–81
[2021-11-01 10:36] LABS: HEMATOCRIT 41.4 % (37.0-47.0); HEMOGLOBIN 13.1 g/dl (12.0-16.0); IMMATURE GRANULOCYTES 0.1 % (0.0-5.0); MEAN CORPUSCULAR HGB 30.7 pG CALC (26.0-32.0); MEAN CORPUSCULAR HGB CONC 31.6 g/dL CAL (32.0-36.0); NEUT# 7.36 thou/uL (2.00-7.15); RED BLOOD COUNT 4.27 mill/uL (4.20-5.60)
[2021-11-01 10:50] LABS: ANION GAP 10 (6-22 (CALC)); BUN 8 mg/dL (8-23); BUN/CREATININE RATIO 13 (12-20 (CALC)); CARBON DIOXIDE 26 mmol/l (22-30); CHLORIDE 107 mmol/l (95-108); CREATININE 0.6 mg/dL (0.5-1.0); GFR FOR AFR.AMER. > 60 ML/MIN (>=60 (CALC)); GFR OTHER RACES > 60 ML/MIN (>=60 (CALC)); MAGNESIUM 1.8 mg/dL (1.6-2.3); POTASSIUM 3.6 mmol/l (3.5-5.1); SODIUM 139 mmol/l (137-146)
[2021-11-01] MEDS ORDERED: FLUOXETINE20 MG PO (12:07)
[2021-11-01] MEDS ORDERED: LAMICTAL ODT200 MG PO (12:08)
== END 2021-11-01 16:00 | disposition home health service (06) ==
LOC: ED 16:20 → ED-I 18:30 → ED 19:21 → MS2 19:22
PROVIDERS: Nurse Practitioner; ADMIT Internal Medicine; ATTEND Internal Medicine
DX: G40.909 Epilepsy, unspecified, not intractable, without status epilepticus (principal); F43.21 Adjustment disorder with depressed mood; K13.79 Other lesions of oral mucosa; I10 Essential (primary) hypertension; I48.0 Paroxysmal atrial fibrillation; E78.5 Hyperlipidemia, unspecified; K21.9 Gastro-esophageal reflux disease without esophagitis; T42.6X6A Underdosing of other antiepileptic and sedative-hypnotic drugs, initial encounter; Z91.128 Patient's intentional underdosing of medication regimen for other reason; Z63.4 Disappearance and death of family member; Z86.73 Personal history of transient ischemic attack (TIA), and cerebral infarction without residual deficits; Z20.822 Contact with and (suspected) exposure to COVID-19